=== PATIENT | male | born 1930 | race Caucasian/White ===

== ENCOUNTER 2017-04-28 07:31 | Day surgery (SDC) | payer OTHER ==
[2017-04-28] MEDS ORDERED: NS 500 ML IV ONE (07:34)
[2017-04-28] MEDS ORDERED: fentaNYL 100 MCG/2 ML INJ IVP ONE (07:34)
[2017-04-28] MEDS ORDERED: PROPOFOL 200 MG/20 ML VIAL IVP ONE (07:34)
[2017-04-28] MEDS ORDERED: MIDAZOLAM 2 MG/2 ML VIAL IVP ONE (07:34)
--- NOTE | 2017-04-28 07:52 | CPEKG ---
Heart Rate: 67 RR Interval: 896 P-R Interval: 174 QRSD Interval: 142 QT Interval: 460 QTC Interval: 486 P Bessie: 0 QRS Bessie: 100 T Wave Bessie: -74 EKG Severity - ABNORMAL ECG - EKG Impression: VENTRICULAR-PACED RHYTHM EKG Impression: IN COMPARISON TO PRIOR ECG, VENTRICULAR CAPTURE IS NOW NOTED Electronically Signed By: Ed Keith 28-Apr-2017 08:47:11
[2017-04-28 08:11] LABS: INR 3.6 (0.83-1.16); PROTIME(PATIENT) 36.5 SEC (12.0-15.0)
[2017-04-28 08:12] LABS: APTT 51.1 SEC (23.0-38.0)
--- NOTE | 2017-04-28 08:16 | PDANEPAE ---
ANE History of Present Illness 86 year old male w/ history of CAD (s/p CABG), AAA (s/p repair), hypothyroidism & atrial fibrillation presents for cardioversion. ANE Past Medical History - Cardiovascular History Hx Hypertension: Yes Hx Arrhythmias: Yes Hx Chest Pain: No Hx Coronary Artery / Peripheral Vascular Disease: Yes Hx CHF / Valvular Disease: No Hx Palpitations: No - Pulmonary History Hx COPD: No Hx Asthma/Reactive Airway Disease: No Hx Recent Upper Respiratory Infection: No Hx Oxygen in Use at Home: No Hx Sleep Apnea: No - Endocrine History Hx Diabetes: No Hypothyroid: Yes Hyperthyroid: No Obesity: no - Renal History Hx Renal Disorders: No - Liver History Hx Hepatic Disorders: No - Chronic Pain History Chronic Pain: Yes ANE Review of Systems - Exercise capacity Exercise capacity: <4 METS (Utilizes a walker; reports balance issues) ANE Patient History - Allergies Allergies/Adverse Reactions: No Known Allergies Allergy (Unverified 05/28/15 09:22) - Home Medications Home medications: home medication list seen and reviewed Home Medications: Aspirin [Aspirin 81mg (*)] 81 mg PO DAILY 05/28/15 [Last Taken 04/27/17 08:00] [place]-3 Fatty Acids [Fish Oil 1000 mg (*)] 1,000 mg PO BID 04/28/17 [Last Taken 04/27/17 17:00] Warfarin Sodium 3 mg PO DAILY 04/28/17 [Last Taken 04/27/17 17:00] - NPO status NPO Status: no food or drink >8 hours - Anes Hx Anes Hx: no prior problems - Smoking Hx Smoking Status: Never smoked - Alcohol Use Alcohol Use: Rarely - Family Anes Hx Family Anes Hx: neg - N/A ANE Labs/Vital Signs - Labs Result Diagrams: 04/28/17 07:52 - Vital Signs Vital Signs: reviewed preoperatively; see RN documention for details Height: 178 cm Weight: 90 kg ANE Physical Exam - Airway Neck exam: FROM Mallampati Score: Class 2 Mouth exam: poor dentition - Pulmonary Pulmonary: no respiratory distress - Cardiovascular Cardiovascular: regular rate and rhythym - ASA Status ASA Status: III ANE Anesthesia Plan Anesthesia Plan: GA with mask Total IV Anesthesia: Yes
[2017-04-28 08:39] LABS: CARBON DIOXIDE 22 mEq/l (22-31); CREATININE 1.3 mg/dL (0.7-1.3); GLOMERULAR FILTRATION RATE 52; GLUCOSE 92 mg/dL (70-100); POTASSIUM 4.4 mEq/L (3.5-5.2); SODIUM 141 mEq/L (134-144)
[2017-04-28 08:40] LABS: CALCIUM 9.1 mg/dL (8.5-10.4); MAGNESIUM 1.8 mg/dL (1.6-2.3)
[2017-04-28 08:49] LABS: ANION GAP 12 mEq/L (8-16); CHLORIDE 107 mEq/L (97-110)
--- NOTE | 2017-04-28 09:01 | PDTEE1 ---
SANCHEZ Cardioversion Procedure Procedure: Electrical Cardioversion Indications: Atrial Fibrillation Consent: Signed and in Chart Anticoagulation: Warfarin Procedural Details: Pads were placed in anterior-posterior position. No SANCHEZ performed. Adequate chronic anticoagulation. Synchronized cardioversion attempt #1: 200J Results: Normal sinus rhythm Conclusions: Successful Cardioversion Patient Problems: Problems Problem Status Onset Constipation Acute Fall Acute Fracture of hand Acute Shoulder pain, right Acute
--- NOTE | 2017-04-28 09:03 | CPEKG ---
Heart Rate: 62 RR Interval: 968 P-R Interval: 346 QRSD Interval: 132 QT Interval: 492 QTC Interval: 500 P [place]: 0 QRS [place]: 94 T Wave [place]: -77 EKG Severity - ABNORMAL ECG - EKG Impression: ATRIAL-VENTRICULAR DUAL-PACED COMPLEXES EKG Impression: ATRIAL PACING IS NOW APPRECIATED Electronically Signed By: Ed Keith 28-Apr-2017 09:03:13
--- NOTE | 2017-04-28 13:10 | POSTANESTH ---
Post Anesthetic Evaluation Cardiovascular Status: Normal, Stable Respiratory Status: Normal, Stable Level of Consciousness/Mental Status: Can Participate in Eval Pain Control: Adequate, Prn Tx Ordered Nausea/Vomiting Control: Adequate, Prn Tx Ordered Complications Possibly Related to Anesthesia: None Noted
== END 2017-04-28 11:15 | disposition home or self-care (01) ==
LOC: FCATH 07:31
PROVIDERS: ATTEND Internal Medicine Interventional Cardiology
PROC: 5A2204Z Restoration of Cardiac Rhythm, Single (ICD-10-PCS; principal; 2017-04-28)
DX: I48.91 Unspecified atrial fibrillation (principal); I49.5 Sick sinus syndrome; I25.10 Atherosclerotic heart disease of native coronary artery without angina pectoris; I73.9 Peripheral vascular disease, unspecified; I10 Essential (primary) hypertension; E78.00 Pure hypercholesterolemia, unspecified; E03.9 Hypothyroidism, unspecified; Z79.01 Long term (current) use of anticoagulants; Z95.1 Presence of aortocoronary bypass graft; Z95.0 Presence of cardiac pacemaker; Z66 Do not resuscitate
CPT/HCPCS: J2704

== ENCOUNTER 2017-06-02 02:26 | Inpatient (IN) | payer OTHER ==
--- NOTE | 2017-06-02 02:35 | EDPHY ---
H & P HPI/ROS: HPI CHIEF COMPLAINT: Syncope versus fall, multiple injuries on Coumadin HISTORY OF PRESENT ILLNESS: The patient very pleasant 86-year-old male, significant past medical history for hypertension, AFib, AAA repair, pacemaker, hyperlipidemia, on Coumadin, he presents emergency room by EMS from [facility] where he resides. He fell approximately 30 minutes prior to arrival. He states he thinks he lost his balance. Unknown if he had a positive LOC. He struck the left forehead region. Also has a large skin tear left elbow. Complaining left shoulder pain. Additionally is large hematoma to the right anterior tibia. He denies any significant complaints. He denies chest pain or shortness of breath. Denies abdominal pain. Past Medical History: Hypertension, hyperlipidemia, AFib on Coumadin, AAA, CABG , pacemaker Past Surgical History: Pacemaker, AAA repair, CABG Social History: Denies daily use of drugs alcohol tobacco products Family History:. Resides at [facility]. Noncontributory ROS REVIEW OF SYSTEMS: A comprehensive 10 point review of systems is otherwise negative aside from elements mentioned in the history of present illness. Exam Constitutional triage nursing summary reviewed, vital signs reviewed, awake/ alert. Eyes normal conjunctivae and sclera, EOMI, PERRLA. HENT head/neck: Left eyebrow hematoma 2 cm x 2 cm, normal inspection, atraumatic, moist mucus membranes, no epistaxis, neck supple/ no meningismus, no raccoon eyes. Respiratory clear to auscultation bilaterally, normal breath sounds, no respiratory distress, no wheezing. Cardiovascular rate normal, regular rhythm, no murmur, no edema, distal pulses normal. Gastrointestinal soft, non-tender, no rebound, no guarding, normal bowel sounds, no distension, no pulsatile mass. Genitourinary no CVA tenderness. Musculoskeletal left arm: Neurovascular intact. Good distal pulse. 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 Large skin tear left elbow region. Full range of motion left elbow, tender palpation of the proximal humerus and lateral shoulder. Does not want movement. No gross deformity. Additionally right lower extremity over the anterior tibia region. There is a hematoma present. 5 cm by 5 cm. Nontender. no midline vertebral tenderness, full range of motion , no calf swelling, no meningismus, good pulses, neurovascularly intact. Skin pink, warm, & dry, no rash, Neurologic awake, alert and oriented x 3, AAOx3, moves all 4 extremities equally, motor intact, sensory intact, CN II-XII intact, normal cerebellar, normal vision, normal speech. Psychiatric normal mood/affect. Heme/Lymph/Immune no lymphadenopathy. Differential Diagnosis: Includes but is not limited to in a particular order mechanical trip and fall, syncope, suprapubic INR, right tib-fib hematoma, left shoulder fracture, large skin tear, closed head injury, intracranial bleed, skull fracture, subdural, epidural, traumatic subarachnoid on Coumadin. Medical Decision Making: Plan for this patient IV establishment, check blood work, check Coumadin level, CT head without contrast for trauma, x-ray left shoulder, x-ray right tib-fib, check coags. Check blood work. EKG. Troponin. Re-evaluate. Re-evaluation: EKG interpretation by me on record in [employer] system. Impression time of EKG 2:52 a.m., ventricularly paced rhythm. Otherwise unremarkable EKG. Similar previous EKG dated 04/28/2017. Chest x-ray reviewed. Shows left humerus neck fracture. Otherwise unremarkable. Cardiomegaly. Left arm x-ray year humerus x-ray reviewed. Shows a humeral neck fracture. Right tib-fib x-ray reviewed. Negative for acute fracture. Left elbow x-ray reviewed by myself. No visible fracture. Final diagnosis, right leg shafer hematoma. Left elbow skin tear. Left humeral neck fracture. Fall. On Coumadin. Forehead hematoma. This patient be admitted to the hospitalist service for observation and pain control. He has a left humeral neck fracture. Right anterior tibial hematoma. Ice pack applied a pressure dressing. Tetanus shot has been updated here in the emergency room. This patient be admitted to the hospitalist service. Dr. Hanson has accepted. 0633AM: Patient has been sleeping and resting comfortably. He has been lying on his side. Was noted his blood pressure was low while lying on the side. He is now sitting up. On his back. Blood pressure noted to be 70s over 40s. Did receive fentanyl earlier. He has no complaints. He is asymptomatic. He denies chest pain or shortness of breath denies abdominal pain. He is getting IV fluid 1 L normal saline bolus. He has not had any fluid all night. Will re- evaluate his blood pressure shortly after fluid bolus. 0645: Blood pressures improved. 90/60. Source: Patient, EMS - Personal History Tetanus Vaccine Date: 2012 - Medical/Surgical History Hx Asthma: No Hx Chronic Respiratory Disease: No Hx Diabetes: No Hx Cardiac Disease: Yes Hx Renal Disease: No Hx Cirrhosis: No Hx Alcoholism: No Hx HIV/AIDS: No Hx Splenectomy or Spleen Trauma: No Other PMH: htn,afib,pacemeker,high chol,bypass, AAA repair, back surgery, carpal ; tunnel, cataract - Social History Smoking Status: Never smoked Constitutional: Initial Vital Signs Temperature (C) 36.5 C 06/02/17 02:39 Heart Rate 85 06/02/17 02:39 Respiratory Rate 18 06/02/17 02:39 Blood Pressure 148/83 H 06/02/17 02:39 O2 Sat (%) 94 06/02/17 02:39 O2 Delivery Mode Room Air Allergies/Adverse Reactions: No Known Allergies Allergy (Unverified 05/28/15 09:22) Home Medications: Medication Instructions Recorded Aspirin EC [Aspirin EC 81 mg (*)] 81 mg PO DAILY 06/02/17 Carvedilol [Coreg (*)] 6.25 mg PO BIDMEAL 06/02/17 Cholecalciferol Vit D3 [Vitamin D3 1,000 units PO DAILY 06/02/17 (*)] Finasteride [Proscar 5 MG (*)] 5 mg PO DAILY 06/02/17 Levothyroxine Sodium 125 mcg PO DAILY 06/02/17 SIMVASTATIN 10 mg PO DAILY@1800 06/02/17 Sertraline HCl [Zoloft 25mg (*)] 25 mg PO DAILY 06/02/17 Warfarin Sodium [Coumadin 1MG (*)] 1.5 mg PO MOFR@1700 06/02/17 Warfarin Sodium [Coumadin 1MG (*)] 3 mg PO SUTUWETHSA@1700 06/02/17 Medical Decision Making - Diagnostics Imaging Results: Imaging Impressions Chest X-Ray 06/02/17 02:28 Impression: 1. Clear lungs. No pneumothorax. 2. Acute minimally impacted left humeral surgical neck fracture. Elbow X-Ray 06/02/17 02:28 Impression: No evidence for acute osseous abnormality of left elbow. Shoulder X-Ray 06/02/17 02:28 Impression: 1. Acute minimally impacted proximal left humerus surgical neck fracture. 2. No dislocation or evidence of AC separation. Tibia/Fibula X-Ray 06/02/17 02:28 Impression: No evidence for acute osseous abnormality. Chronic findings as above. e:sfg - Data Points Laboratory Results: Laboratory Results 06/02/17 02:30 06/02/17 02:30 06/02/17 02:30 TSH 27.400 uIU/mL H uIU/mL (0.465-4.680) Medications Given: Acetaminophen (Tylenol) 1,000 mg PO TID RAFI Stop: 11/29/17 15:59 Last Admin: 06/02/17 16:07 Dose: 1,000 mg Hydrocodone Bitart/Acetaminophen ([place] 5/325) 1 - 2 tab PO Q4HRS PRN PRN Reason: Pain, Moderate Able to Take PO Stop: 06/12/17 08:57 Last Admin: 06/02/17 10:43 Dose: 2 tab Carvedilol (Coreg) 6.25 mg PO BIDMEAL [facility] Stop: 11/29/17 13:00 Last Admin: 06/02/17 18:00 Dose: Not Given Sodium Chloride (Ns) 1,000 mls @ 75 mls/hr IV CONT RAFI Stop: 11/29/17 08:59 Last Admin: 06/02/17 14:21 Dose: 1,000 mls Pravastatin Sodium (Pravachol) 20 mg PO DAILY@1800 RAFI Stop: 11/29/17 17:59 Last Admin: 06/02/17 18:03 Dose: 20 mg Sertraline HCl (Zoloft) 25 mg PO DAILY [facility] Stop: 11/29/17 13:14 Last Admin: 06/02/17 14:14 Dose: 25 mg Discontinued Medications Fentanyl (Sublimaze) 50 mcg IVP EDNOW ONE Stop: 06/02/17 03:54 Last Admin: 06/02/17 03:54 Dose: 50 mcg Fentanyl (Sublimaze) 50 mcg IVP EDNOW ONE Stop: 06/02/17 05:18 Last Admin: 06/02/17 05:18 Dose: 50 mcg Sodium Chloride (Ns) 1,000 mls @ 0 mls/hr IV ONCE ONE PRN Reason: Wide Open Stop: 06/02/17 06:22 Last Admin: 06/02/17 06:26 Dose: 1,000 mls Sodium Chloride (Ns) 250 mls @ 200 mls/hr IV ONCE ONE Stop: 06/02/17 15:53 Last Admin: 06/02/17 15:56 Dose: 250 mls Sodium Chloride (Ns) 250 mls @ 0 mls/hr IV ONCE ONE PRN Reason: Wide Open Stop: 06/02/17 18:18 Last Admin: 06/02/17 18:31 Dose: 250 mls Departure - Departure Disposition: [facility] Clinical Impression: Skin tear, Hematoma Humeral surgical neck fracture Qualifiers: Encounter type: initial encounter Fracture type: closed Fracture morphology: unspecified fracture morphology Fracture alignment: nondisplaced Laterality: left Qualified Code(s): S42.215A - Unspecified nondisplaced fracture of surgical neck of left humerus, initial encounter for closed fracture Syncope Qualifiers: Syncope type: unspecified Qualified Code(s): R55 - Syncope and collapse Condition: Fair
[2017-06-02 02:40] LABS: ABSOLUTE IMMATURE GRANULOCYTES 0.06 10^3/uL (0.00-0.10); ADD DIFF? NO; ADD MORPH? NO; ADD SCAN? NO; ATYPICAL LYMPHOCYTE FLAG 0 (0-99); FRAGMENT RBC FLAG 0 (0-99); HEMATOCRIT 41.1 % (40.0-51.0); HEMOGLOBIN 13.8 g/dL (13.7-17.5); LEFT SHIFT FLG 0 (0-99); LIPEMIA HEMOLYSIS FLAG 80 (0-99); MEAN CELL HEMOGLOBIN 33.3 pg (27.9-34.1); MEAN CELL HEMOGLOBIN CONCENTR. 33.6 g/dL (32.4-36.7); MEAN PLATELET VOLUME 10.5 fL (8.7-11.7); PLATELET CLUMPS FLAG 0 (0-99); PLATELET COUNT 181 10^3/uL (150-400); RED BLOOD CELL COUNT 4.15 10^6/uL (4.40-6.38); RED CELL DISTRIBUTION WIDTH 14.3 % (11.5-15.2)
[2017-06-02 02:49] LABS: INR 2.83 (0.83-1.16); PROTIME(PATIENT) 30.1 SEC (12.0-15.0)
[2017-06-02 02:50] LABS: APTT 36.2 SEC (23.0-38.0)
--- NOTE | 2017-06-02 02:54 | CPEKG ---
Heart Rate: 60 RR Interval: 1000 P-R Interval: 184 QRSD Interval: 146 QT Interval: 476 QTC Interval: 476 P [place]: 0 QRS [place]: 81 T Wave [place]: -40 EKG Severity - ABNORMAL ECG - EKG Impression: VENTRICULAR-PACED RHYTHM Electronically Signed By: Marck Cooper 02-Jun-2017 07:02:44
[2017-06-02 03:05] LABS: ANION GAP 11 mEq/L (8-16); CALCIUM 9.4 mg/dL (8.5-10.4); CARBON DIOXIDE 21 mEq/l (22-31); CHLORIDE 106 mEq/L (97-110); CREATININE 1.3 mg/dL (0.7-1.3); GLOMERULAR FILTRATION RATE 52; GLUCOSE 109 mg/dL (70-100); POTASSIUM 4.5 mEq/L (3.5-5.2); SODIUM 138 mEq/L (134-144)
[2017-06-02 03:17] LABS: TROPONIN I < 0.012 ng/mL (0.000-0.034)
[2017-06-02] MEDS ORDERED: fentaNYL 100 MCG/2 ML INJ ONE (03:51)
[2017-06-02] MEDS ORDERED: fentaNYL 100 MCG/2 ML INJ IVP ONE ×2 (03:53→05:17)
[2017-06-02] MEDS ORDERED: NS 1,000 ML IV ONE (06:21)
[2017-06-02 07:04] LABS: % IMMATURE GRANULYOCYTES 0.4 % (0.0-1.1); ABSOLUTE IMMATURE GRANULOCYTES 0.05 10^3/uL (0.00-0.10); ADD DIFF? NO; ADD MORPH? NO; ADD SCAN? NO; ATYPICAL LYMPHOCYTE FLAG 0 (0-99); FRAGMENT RBC FLAG 0 (0-99); HEMATOCRIT 37.3 % (40.0-51.0); HEMOGLOBIN 12.3 g/dL (13.7-17.5); LEFT SHIFT FLG 0 (0-99); LIPEMIA HEMOLYSIS FLAG 80 (0-99); MEAN CELL HEMOGLOBIN 32.6 pg (27.9-34.1); MEAN CELL VOLUME 98.9 fL (81.5-99.8); MEAN PLATELET VOLUME 10.5 fL (8.7-11.7); PLATELET CLUMPS FLAG 0 (0-99); PLATELET COUNT 152 10^3/uL (150-400); RED BLOOD CELL COUNT 3.77 10^6/uL (4.40-6.38); RED CELL DISTRIBUTION WIDTH 14.4 % (11.5-15.2)
[2017-06-02] MEDS ORDERED: ACETAMINOPHEN 325 MG TAB PO PRN (08:58)
[2017-06-02] MEDS ORDERED: ONDANSETRON 4 MG/2 ML VIAL IVP PRN (08:58)
[2017-06-02] MEDS ORDERED: HYDROmorphONE/DILAUDID 1 MG/ML INJ IVP PRN (08:58)
--- NOTE | 2017-06-02 10:36 | GHP ---
[f rep st] HISTORY AND PHYSICAL DATE OF ADMISSION: 06/02/2017 SOURCE: Patient able to provide majority of the history. Appears reliable. His son is at bedside a nd supplements details. CHIEF COMPLAINT: Fall. HISTORY OF PRESENT ILLNESS: This is a very pleasant 86-year-old gentleman with past medical history significant for coronary artery disease status post CABG, hyperlipidemia, hypothyroidism, BPH, depres keith, and history of atrial fibrillation on chronic anticoagulation with Coumadin, who presents to [facility] emergency department today following a syncopal episode at home early in the morning. Patient reports that he got up at approximately 2 o'clock to go to the bathroom and feels that he had a few seconds where he blacked out, but does recall the total event and falling and hitting the grou nd. Patient did strike the left side of his head and his arm and his left leg. 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 Patient does have a history of some hypotension last year that was resulti ng in multiple falls. Patient is followed closely with Cardiology and sees Dr. Kowalski. He states t hat approximately 2 weeks ago he had an appointment at the office where his pacer was interrogated an d found to be functioning normally. Patient denies any lightheadedness, no headache, no changes in v ision, no palpitations, no chest pain or shortness of breath. Patient states that he did feel a geni le bit lightheaded prior to his syncopal episode. Patient had a few blood pressures in the emergency department before arriving to the floor with systolics in the 70s to 80s. He did receive a liter of fluid in the emergency department and this has resolved. REVIEW OF SYSTEMS: GENERAL: Patient denies any fevers, chills. SKIN: Patient with some skin tears and bruising. He does have multiple calluses on his feet, which are followed by Podiatry. ENT: No congestion, sore throat. EYES: No acute changes in vision or ocular pain. CV: No chest pain, pal pitations. RESPIRATORY: No shortness of breath or cough. ABDOMEN: No nausea, vomiting, abdominal pain, or diarrhea. : No dysuria, hematuria. MUSCULOSKELETAL: Patient with left shoulder pain fo llowing his fall. Denies any numbness or tingling. Does use a walker for stability. NEURO: Patien t without numbness, tingling. No headache. No focal weakness reported. Remainder of review of syst ems negative except as noted above. ALLERGIES: No known drug allergies. HOME MEDICATIONS: Zoloft 50 mg p.o. daily, sertraline, warfarin, simvastatin, fish oil, levothyroxin e, finasteride, carvedilol, aspirin. Med rec not yet reconciled for dosing and frequency. PAST MEDICAL HISTORY: Significant for CABG, hyperlipidemia, hypothyroidism, BPH, depression, atrial fibrillation, and decreased hearing with the use of bilateral hearing aids. PAST SURGICAL HISTORY: Significant for AAA repair in 2004, pacer placement, CABG, carpal tunnel rele ase and multiple back surgeries. FAMILY HISTORY: Patient denies any coronary artery disease. Parents, siblings and children are all healthy. SOCIAL HISTORY: Patient resides at [facility] with his who has advanced johan ia. He denies any current tobacco or drug use. He does drink 1 beer per day. He quit smoking in just prior to his CABG. CODE STATUS: Patient with advanced directives. His son Kyle Wu is MD CLARKE. He is a DNR/DNI. PHYSICAL EXAMINATION: VITAL SIGNS: On arrival to the ER, blood pressure 148/83, heart rate 85, resp iratory rate 18, O2 saturation 94%, temperature 36.5 Celsius. Current vitals, blood pressure 121/68, heart rate 61, pulse ox 16, O2 saturation 99% on room air. GENERAL: No acute distress. Very pleas ant, elderly, frail-appearing gentleman who is resting comfortably in bed. Awake. His son is at bed side. Patient appears to be in good spirits. HEAD: Normocephalic. Patient with some trauma over t he left eyebrow. He has a contusion hematoma. EYES: Extraocular muscles are intact. Pupils are eq ual, round, reactive to light bilaterally and symmetric. No scleral icterus or conjunctival injectio n. There is a small subconjunctival hemorrhage on the right medial eye. ENT: Mucous membranes appe ar moist. No oropharyngeal erythema or exudates. NECK: Supple. Trachea midline. CV: Regular rat e and rhythm. Distant heart sounds. Patient with pacer implant on the left chest wall noted. No ch est wall tenderness to palpation. RESPIRATORY: Lungs clear to auscultation bilaterally. No wheezes , rales, or rhonchi appreciated. Some decreased inspiratory effort noted. ABDOMEN: Positive bowel sounds. Soft, nontender to palpation. No rebound, guarding, or masses appreciated. GENITOURINARY: No Wall in place. No suprapubic tenderness to palpation. EXTREMITIES: Patient without any cyanos is, clubbing, or edema. SKIN: Patient with bruising contusion left forehead. His left arm is in a sling and also wrapped heavily with Kerlix, reported to have a skin tear present. He also has abrasi on and large hematoma on the left mid lower leg. Patient's feet with some scabs at the distal aspect of his toes and multiple calluses with scabbed lesions present. NEURO: Cranial nerves II through X II intact, symmetric bilaterally. Patient is awake, alert, and oriented x3. He is slightly hard of hearing. PSYCH: Thought process, content and questions appear appropriate. LABORATORY STUDIES: WBC 5.94, DH and DH is 13.8 and 41.1, MCV of 99.0, platelet count is 181. No ba nds. A repeat CBC was obtained this morning. WBC is now 12.4, DH and DH 12.3 and 37.3, MCV of 98.9, platelet count 152, neutrophil percent 88%. PT is 30.1, INR 2.83, PTT is 36.2, sodium is 138, potas sium is 4.5, chloride 106, CO2 is 21, BUN 30, creatinine is 1.3. GFR is 52. Glucose is 109, calcium is 9.4. Troponin is less than 0.012. EKG reviewed myself showing AV paced rhythm in the 60s. Chest x-ray image report reviewed showing clear unremarkable chest x-ray with a left surgical neck fr acture in the proximal humerus, minimally impacted. Elbow image report reviewed. Left elbow without acute fracture. Shoulder image report reviewed. Acute, minimally impacted proximal left humerus surgical neck fractu re. No dislocation. No evidence of AC separation. Tib-fib x-ray on the left, negative for osseous abnormality. Vascular calcifications noted. Diffuse demineralization. Degenerative change of right knee. ASSESSMENT/PLAN: This is a pleasant 86-year-old gentleman who presents following a fall. 1. Syncope. Suspect this is likely related to some orthostatic hypotension for which patient does h ave a history of, but last episode has been well over a year. He is currently on carvedilol, which w ill be held at this time. In addition, will check a thyroid level. Patient reports that he recently saw a nurse practitioner at Dr. Kowalski's office with interrogation of his pacer that is reported to be functioning and intact. Will try to get a progress note to review those results. Patient will b e given some IV fluid hydration. His creatinine is slightly increased. Unclear if this is close to his baseline as his previous labs available from 2016 show a baseline of 1.1, so he will get some IV fluids. 2. Left humerus fracture at surgical neck. Dr. Blank with Orthopedics has been consulted for [facility] recommendations. 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 He is currently on Coum aneesh, which is slightly elevated. INR of 2.8. Will be holding his Coumadin and defer recommendation s to orthopedic service. 3. Leukocytosis. This is likely reactive in setting of patient's fall and/or combination with his b rief episode of hypotension, less likely. He will get some IV fluids. No evidence of fevers or infe ctious source. Will check a UTI given patient's bump in neutrophil. 4. Skin tears. Will consult Wound Care. 5. Atrial fibrillation. Patient currently V paced with therapeutic INR. Holding Coumadin. Hold of f on Coreg in addition secondary to hypotension and syncopal episode. 6. History of hypothyroidism. Checking TSH. 7. BPH. Okay to continue finasteride once list is updated. 8. Depression. Mood appears to be appropriate. Resume patient's home medication once his list is v erified. 9. Hyperlipidemia. Continue statin. 10. Fluid, electrolyte, nutrition. IV fluids as noted above for some gentle hydration. Electrolyte replacement p.r.n. Cardiac diet has been ordered. 11. Prophylaxis. SCDs as tolerated. Patient's INR is therapeutic at 2.8. 12. Code status is DNR/DNI. Patient's son, Kyle Wu, is MD CLARKE. 13. Disposition. Patient currently admitted to observation on the PCU floor for cardiac monitoring. /[id number]/MODL
[2017-06-02] MEDS: HYDROCODONE/APAP 5/325 TAB PO PRN ×2 (10:43→21:52)
[2017-06-02] MEDS: NS 1,000 ML IV SCH ×2 (10:44→14:21)
[2017-06-02] MEDS: SERTRALINE HCL 25 MG TAB PO SCH (14:14)
[2017-06-02] MEDS: CARVEDILOL 6.25 MG TAB PO SCH ×2 (14:37→18:00)
[2017-06-02] MEDS ORDERED: NS 250 ML IV ONE ×2 (14:39→18:17)
--- NOTE | 2017-06-02 14:51 | HOSPPROG ---
Hospitalist Progress Note Assessment/Plan: Patient is a 86-year-old male with a history of coronary artery disease status post coronary artery bypass grafting, hyperlipidemia, hypothyroidism, atrial fibrillation on chronic anticoagulation, who presented the emergency room after having a syncopal episode early in the morning. He was admitted earlier this morning. I came by to follow up with him. * syncope Patient has a history of orthostatic hypotension He is currently on Coreg this is his 3rd event/he describes just finding himself on the ground spoke w cards/they will see him evaluated tele: paced * hypotension Giving a fluid bolus now, parameters placed on Coreg, holding Proscar since 18% of the time it can cause hypotension * left humerus fracture at the surgical neck Awaiting input from surgical team * skin tears wound care * leukocytosis repeat labs in a.m. * atrial fibrillation Coreg will will be placed on hold and anticoagulation on hold until further evaluation * BPH holding Proscar for now * depression stable * hyperlipidemia statin resumed *Plan: will hold aspirin and Coumadin until further eval by orthopedics/ spoke w cardiology / he may need pacer interrogated Subjective: Bill has no complaints/ feeling well/ no arm pain. Objective: Vital Signs Temp Pulse Resp BP Pulse Ox 36.7 C 60 18 81/48 L 94 06/02/17 10:40 06/02/17 14:16 06/02/17 10:40 06/02/17 14:16 06/02/17 10:40 Laboratory Results 06/02/17 06:54 06/01/17 06/02/17 06/03/17 05:59 05:59 05:59 Output Total 250 Balance -250 PT 30.1 SEC (12.0-15.0) H 06/02/17 02:30 INR 2.83 (0.83-1.16) H 06/02/17 02:30 - Physical Exam Constitutional: no apparent distress, appears nourished Eyes: PERRL Ears, Nose, Mouth, Throat: hearing normal Cardiovascular: regular rate and rhythym Respiratory: no respiratory distress Gastrointestinal: normoactive bowel sounds Skin: warm, other (skin tear to right shafer) Neurologic: AAOx3 Psychiatric: interacting appropriately, not anxious ICD10 Worksheet Patient Problems: Problems Problem Status Onset Hematoma Acute Humeral surgical neck fracture Acute Skin tear Acute Syncope Acute Constipation Acute Fall Acute Fracture of hand Acute Shoulder pain, right Acute
[2017-06-02] MEDS: ACETAMINOPHEN 500 MG TAB PO SCH ×2 (16:07→21:52)
--- NOTE | 2017-06-02 16:32 | GCON ---
[f rep st] CONSULTATION HISTORY OF PRESENT ILLNESS: The patient was walking in the night and fell over. He did not lose con sciousness. He had no chest pain or chest tightness. He does recall very clearly falling down. Thi s has happened to him before. He landed on his left side and now has had trauma. He has been having this happen before. He sees a oxygen therapist for this and he is taken care of by Dr. Quigley. His c ardiac history includes bypass surgery, hyperlipidemia, atrial fibrillation, intermittent hypertensio n and peripheral vascular disease with abdominal aortic aneurysm repair in 2004. He does not have go ut. He does not have diabetes. He has no smoking history right now of any recent time in the past. He has no family history of premature coronary disease. He has been feeling his normal well self. He can get around, take care of things in his house. Does not have shortness of breath, orthopnea, P ND, dyspnea on exertion, pleuritic chest pain, fever, chills, cough, nausea, vomiting, diarrhea, cons tipation. He tells me he is really doing quite well. FAMILY HISTORY: No family history of premature coronary disease. No history of unexplained sudden at a young age. SOCIAL HISTORY: He is an active gentleman. He lives with his , who has significant medical prob lems. He does not smoke and he does not drink significant amounts of alcohol. He smoked up until ma ybe 38 years ago. REVIEW OF SYSTEMS: A 12-point review of systems negative except as covered here and in the chart. PAST SURGICAL HISTORY: 1. Back surgery. 2. Abdominal aortic aneurysm repair. 3. Pacemaker. 4. Bypass surgery. 5. An orthopedic procedure, carpal tunnel. REVIEW OF SYSTEMS: As I have said 13-point review of systems negative except as noted above. In add ition, he does have a remote history of carpal tunnel issues. He has a history of depression. Histo ry of hypothyroidism. He has decreased hearing. MEDICATIONS: Aspirin, carvedilol, simvastatin, warfarin, sertraline, fish oil, levothyroxine, finast eride. PHYSICAL EXAMINATION: VITAL SIGNS: Blood pressure is 137/70, heart rate 75, respiratory rate 12. H e is sitting comfortably in the hospital bed, flat and not short of breath. He is afebrile. NECK: Supple. CARDIOVASCULAR: S1, S2. Irregularly irregular. Soft systolic murmur left sternal b order. No diastolic murmur. No S3, S4. No rubs. PULMONARY: Rhonchi bilaterally. No rales, wheez ing, or dullness. CVA: No tenderness. ABDOMEN: Soft, nontender, without masses. EXTREMITIES: No edema, inflammation, or ulceration. He has his arm in a sling. He is traumatized from the fall as described in the chart. LABORATORY DATA: His EKG has a paced rhythm. His chest x-ray shows left surgical neck fracture in t he proximal humerus. He has other x-rays that are attached. Troponin is less than 0.012. His monit or does not show any pathologic ventricular arrhythmias that I can find. His platelet count, white c ount, hematocrit are all attached in the records. His blood sugar is 109. ASSESSMENT AND PLAN: Trauma. He clearly states today that he has not had syncope. He has been on r ate control for atrial fibrillation. He was given a Cardizem while back, got lightheaded on that. H is blood pressure at home can be 84 on a regular basis off medicine and so he stopped the Cardizem an d he is not having any problems with that right now. He has not had chest pain, nothing for an acute coronary syndrome, nothing for heart failure, nothing for significant malignant arrhythmias. At home and looking at this medications, his carvedilol may be a problem. I have talked to him extensively about the risk of surgery on his shoulder if that is what is needed. He understands there is a risk of . He does not want any further cardiovascular testing at th is time. He wants to have ongoing medical therapy and be watched carefully. He has no other issues or problems at this time. We are very happy to follow him with you if you need us to do anything. I do not think he needs to b e monitored at this point in time with further cardiovascular monitoring than is available in the [facility]. SUMMATION PROBLEM LIST: 1. Coronary artery disease/status post coronary artery bypass grafting. 2. Hyperlipidemia. 3. Hypothyroidism. 4. Atrial fibrillation. 5. Decreased hearing. 6. Abdominal aortic aneurysm repair. All his questions have been answered. We will not plan on seeing him again unless something comes up ; if that is the case, please give us a call. I have talked to his nurse about this. /[id number]/MODL
[2017-06-02] MEDS ORDERED: NON-FORMULARY NEW DRUG (Simvastatin [Simvastatin] 10 MG) PO SCH (18:00)
[2017-06-02] MEDS: PRAVASTATIN SODIUM 20 MG TAB PO SCH (18:03)
--- NOTE | 2017-06-02 20:33 | GCON ---
[f rep st] CONSULTATION REASON FOR CONSULTATION: Left shoulder injury. HISTORY OF PRESENT ILLNESS: The patient is an 86-year-old, right-hand dominant man, who sustained a fall due to imbalance, landing on his left arm. He now has left shoulder pain. He denies any previo us problems or injuries relative to his left shoulder. EXAMINATION: There is mild diffuse swelling with no ecchymosis, and no gross deformity about his lef t shoulder girdle. Vascular exam reveals good capillary refill distally. He is able to flex and ext end his fingers and wrist without difficulty with normal distal sensation. He has mild tenderness al twila the proximal humerus, reproducing the location of his pain. IMAGING: Radiographs of his shoulder show very minimally displaced surgical neck humerus fracture wi th some extension into the head. There is very minimal displacement. ASSESSMENT: Left proximal humerus fracture. PLAN: Based on the minimally displaced nature of the fracture, it is recommended that nonoperative t reatment course be pursued. He was placed in a sling. From an ambulation standpoint, a rolling fore arm walker may be of benefit. He and his son were informed of the extreme likelihood that this will heal uneventfully with nonoperative treatment, but subtle risk that displacement may occur necessitat ing surgery. Followup will be in approximately 3 weeks for repeat radiographs. /[id number]/MODL
[2017-06-02 21:43] LABS: COLOR YELLOW; LEUKOCYTE ESTERASE,URINE 2+ (NEGATIVE); NITRITE,URINE NEGATIVE (NEGATIVE)
[2017-06-02 21:52] LABS: BACTERIA 4+ /hpf (NONE SEEN); RBC,URINE 50-182 /hpf (0-3); WBC,URINE 50-182 /hpf (0-3)
[2017-06-03 05:13] LABS: % IMMATURE GRANULYOCYTES 0.4 % (0.0-1.1); ABSOLUTE IMMATURE GRANULOCYTES 0.04 10^3/uL (0.00-0.10); ADD DIFF? NO; ADD MORPH? NO; ADD SCAN? NO; ATYPICAL LYMPHOCYTE FLAG 0 (0-99); FRAGMENT RBC FLAG 0 (0-99); HEMATOCRIT 32.3 % (40.0-51.0); HEMOGLOBIN 10.6 g/dL (13.7-17.5); LEFT SHIFT FLG 20 (0-99); LIPEMIA HEMOLYSIS FLAG 80 (0-99); MEAN CELL HEMOGLOBIN 32.8 pg (27.9-34.1); MEAN CELL HEMOGLOBIN CONCENTR. 32.8 g/dL (32.4-36.7); PLATELET CLUMPS FLAG 0 (0-99); PLATELET COUNT 135 10^3/uL (150-400); RED BLOOD CELL COUNT 3.23 10^6/uL (4.40-6.38); RED CELL DISTRIBUTION WIDTH 14.6 % (11.5-15.2)
[2017-06-03 05:31] LABS: ANION GAP 11 mEq/L (8-16); CALCIUM 8.2 mg/dL (8.5-10.4); CARBON DIOXIDE 20 mEq/l (22-31); CHLORIDE 107 mEq/L (97-110); CREATININE 1.6 mg/dL (0.7-1.3); GLOMERULAR FILTRATION RATE 41; GLUCOSE 105 mg/dL (70-100); POTASSIUM 4.3 mEq/L (3.5-5.2); SODIUM 138 mEq/L (134-144)
[2017-06-03 05:32] LABS: INR 3.34 (0.83-1.16); PROTIME(PATIENT) 34.4 SEC (12.0-15.0)
[2017-06-03] MEDS: ACETAMINOPHEN 500 MG TAB PO SCH ×3 (06:20→20:54)
[2017-06-03] MEDS ORDERED: FINASTERIDE 5 MG TAB PO SCH (09:00)
[2017-06-03] MEDS: LEVOTHYROXINE 125 MCG TAB PO SCH (09:58)
[2017-06-03] MEDS: CHOLECALCIFEROL VIT D3 1,000 UNITS TAB PO SCH (09:58)
[2017-06-03] MEDS: SERTRALINE HCL 25 MG TAB PO SCH (10:00)
[2017-06-03] MEDS: CARVEDILOL 6.25 MG TAB PO SCH (10:00)
--- NOTE | 2017-06-03 12:07 | HOSPPROG ---
Hospitalist Progress Note Assessment/Plan: Patient is a 86-year-old male with a history of coronary artery disease status post coronary artery bypass grafting, hyperlipidemia, hypothyroidism, atrial fibrillation on chronic anticoagulation, who presented the emergency room after having a syncopal episode early in the morning. He was admitted earlier this morning. I came by to follow up with him. Reviewed his care with Dr Morel with cardiology/ appreciate him seeing Tyrone. * syncope Patient has a history of orthostatic hypotension He is currently on Coreg/on hold due to hypotension this is his 3rd event/he describes just finding himself on the ground evaluated tele: v paced * hypotension Giving 2nd fluid bolus not symptomatic x may be causing his falls *Hypothyroidism TSH is elevated at 27.4 likely need Synthroid dose increased * left humerus fracture at the surgical neck appreciate Dr Blank/ nonsurgical * skin tears wound care * leukocytosis resolved *anemia will follow/ has some macrocytosis *Pyuria and hematuria not symptomatic/says he has had years of blood in his urine * atrial fibrillation Coreg not given due to low bp Coumadin on hold/ INR is 3.3 * BPH holding Proscar for now (decreases bp) * depression stable * hyperlipidemia statin resumed *Plan: he will need to stay another midnight due to hypotension, falling, elevated kidney function;this will make him IP stay Subjective: Tyrone has no c/o pain as long as he doesn't move his left arm. Objective: Vital Signs Temp Pulse Resp BP Pulse Ox 36.8 C 63 14 90/51 L 97 06/03/17 08:00 06/03/17 08:00 06/03/17 08:00 06/03/17 08:00 06/03/17 08:00 Laboratory Results 06/03/17 04:20 06/03/17 04:20 06/02/17 06/03/17 06/04/17 05:59 05:59 05:59 Intake Total 2175 Output Total 930 Balance 1245 PT 34.4 SEC (12.0-15.0) H 06/03/17 04:20 INR 3.34 (0.83-1.16) H 06/03/17 04:20 - Physical Exam Constitutional: appears nourished, not in pain, chronically ill appearing Eyes: PERRL Ears, Nose, Mouth, Throat: hard of hearing Cardiovascular: regular rate and rhythym Respiratory: no respiratory distress Gastrointestinal: normoactive bowel sounds, other (large and round) Skin: warm, other (skin tear to shafer area) Neurologic: AAOx3 Psychiatric: interacting appropriately, not anxious, not encephalopathic ICD10 Worksheet Patient Problems: Problems Problem Status Onset Hematoma Acute Humeral surgical neck fracture Acute Skin tear Acute Syncope Acute Constipation Acute Fall Acute Fracture of hand Acute Shoulder pain, right Acute
[2017-06-03] MEDS ORDERED: ASPIRIN EC 81 MG TAB PO SCH (12:15)
--- NOTE | 2017-06-03 12:26 | ASMTCMCOM ---
CM Note CM Note Notes: 06/03/2017 Case Management Note Met w/pt and son Kyle who is MDPOA. Pt lives at [facility] near [address] [facility]. is wheelchair bound and receives therapy from both [facility] and [facility]. If pt needs home health care, first choice is to increase services through [facility]. Pt is able to drive, receives housekeeping services and meals through [facility]. Son is actively involved in cares. Kyle reports that [facility] is able to add additional services as needed and that [facility] is able to care for residents who are bed bound and require high levels of care. PT recommends SNF rehab. Discussed w/pt and son. Sent referrals to [facility] at pt request. Both are in network for [employer] per son who researched on [employer] website. Case Management d/c poc: SNF when accepted. Case Management to follow. Date Signed: 06/03/2017 12:26 PM Electronically Signed By:Juju Alvarez RN
[2017-06-03] MEDS ORDERED: NS 250 ML IV ONE (12:32)
[2017-06-03] MEDS ORDERED: HYDROCODONE/APAP 5/325 TAB PO PRN (12:43)
--- NOTE | 2017-06-03 12:59 | PDCARPN ---
Cardiology Progress Note Chief Complaint: synocpe Assessment/Plan: Assessment: 1. Non prodromal Syncope 2. Atrial Fibrillation (rate controlled) 3. Hypotension 4. Hx of CAD with CABG in and 1993 5. SSS sp PPM ( Medtronic pacer) Plan: -stop coreg -if need rate controll, will use digoxin but would not empirically start digoxin now -would also consider AV node ablation if rate control becomes an issue off of Beta lorenza -stop aspirin in the setting of warfarin therapy -Will follow 06/03/17 12:59 Subjective: 86 year old admitted after syncopal episode on Monday night. He states he got up to go to the bathroom at 2 AM, he states he stood up out of bed and the next thing he knew he was on the floor bleeding from his elbow. He suffered hematoma to his left side of his face and humerous fracture and hematoma to his left leg. He reports two other, similar non prodromal syncopal events over the last 2 years. Mr. Wu is followed by Dr. Preston Quigley. He has hx of CABG in 1982 and 1993. He also has hx of SSS, sp pacemaker and PAF. He is on chronic anticoagulation with warfarin. He is on coreg 6.25 mg bid. His only complaint is fatigue. He denies dizziness, lightheadedness, or syncope. No chest pain, sob, laura. No new changes in his medications. He is currently in rate controlled afib with intermittant paced beats. He is hypotensive with SBP in the 90's. He is resting comfortably in a chair at the time of my exam. Reviewed/Discussed With: hospitalist, multidisciplinary team Time Spent With Patient: 30 minutes Objective: Vital Signs (8 Hrs) Temp Pulse Resp BP Pulse Ox 06/03/17 08:00 36.8 C 63 14 90/51 L 97 Intake/Output (24 Hrs) 06/02/17 06/03/17 06/04/17 05:59 05:59 05:59 Intake Total 2175 Output Total 930 50 Balance 1245 -50 Intake: Oral (ml) 850 IV Infused (ml) 1325 Ns 1,000 ml @ 75 mls/hr 825 IV CONT RAFI Rx#: [id number] Ns 250 ml @ 200 mls/hr IV 250 ONCE ONE Rx#:[id number] Ns 250 ml @ Wide Open IV 250 ONCE ONE Rx#:[id number] Output: Urine (ml) 930 50 Urinal 930 50 Other: Weight 85.275 kg Intake Quantity Yes Sufficient Number of Voids Urinal 1 Result Diagrams: 06/03/17 04:20 06/03/17 04:20 - Physical Exam Constitutional: WDWN, no apparent distress Cardiovascular: no murmurs, no rubs, no gallops, irregularly irregular Peripheral Pulses: 2+: carotid (R), carotid (L) Respiratory: clear to auscultate bilat Gastrointestinal: normoactive bowel sounds Skin: other (Left sided facial hematoma, right shafer hematoma ) Neurologic: AAOx3, CN II-XII grossly intact Psychiatric: cooperative, interactive, following commands ICD10 Worksheet Patient Problems: Problems Problem Status Onset Fall Acute Fracture of hand Acute Shoulder pain, right Acute Constipation Acute Humeral surgical neck fracture Acute Skin tear Acute Syncope Acute Hematoma Acute
[2017-06-03] MEDS: PRAVASTATIN SODIUM 20 MG TAB PO SCH (16:31)
[2017-06-04 04:41] LABS: % IMMATURE GRANULYOCYTES 0.5 % (0.0-1.1); ABSOLUTE IMMATURE GRANULOCYTES 0.04 10^3/uL (0.00-0.10); ADD DIFF? NO; ADD MORPH? NO; ADD SCAN? NO; ATYPICAL LYMPHOCYTE FLAG 0 (0-99); FRAGMENT RBC FLAG 0 (0-99); HEMATOCRIT 30.4 % (40.0-51.0); HEMOGLOBIN 9.9 g/dL (13.7-17.5); LEFT SHIFT FLG 10 (0-99); LIPEMIA HEMOLYSIS FLAG 80 (0-99); MEAN CELL HEMOGLOBIN 32.6 pg (27.9-34.1); MEAN CELL HEMOGLOBIN CONCENTR. 32.6 g/dL (32.4-36.7); PLATELET CLUMPS FLAG 0 (0-99); PLATELET COUNT 124 10^3/uL (150-400); RED BLOOD CELL COUNT 3.04 10^6/uL (4.40-6.38); RED CELL DISTRIBUTION WIDTH 14.6 % (11.5-15.2)
[2017-06-04 04:50] LABS: INR 2.79 (0.83-1.16); PROTIME(PATIENT) 29.8 SEC (12.0-15.0)
[2017-06-04 04:51] LABS: ANION GAP 7 mEq/L (8-16); CALCIUM 8.3 mg/dL (8.5-10.4); CARBON DIOXIDE 20 mEq/l (22-31); CHLORIDE 107 mEq/L (97-110); CREATININE 1.4 mg/dL (0.7-1.3); GLOMERULAR FILTRATION RATE 48; GLUCOSE 87 mg/dL (70-100); SODIUM 134 mEq/L (134-144)
--- NOTE | 2017-06-04 08:15 | PDCARPN ---
Cardiology Progress Note Assessment/Plan: Assessment: 1. Non prodromal Syncope 2. Atrial Fibrillation (rate controlled) 3. Hypotension 4. Hx of CAD with CABG in and 1993 5. SSS sp PPM ( Medtronic pacer) Plan: -would recommend he remain off of beta blockers in the setting of hypotension and syncope -if need rate control, recommend digoxin but would not empirically start digoxin now -would also consider AV node ablation if rate control becomes challenging -stop aspirin in the setting of warfarin therapy -Will follow 06/03/17 12:59 06/04/17 08:12 Subjective: Mr. Wu is doing well this AM. No new complaints. BP has slightly improved. Remains in rate controlled Afib with intermittant paced beats. No complaints of dizzness, lightheadedness, near syncope or syncope. Pt reports pacer checked last week. Time Spent With Patient: 15 minutes Objective: Vital Signs (8 Hrs) Temp Pulse Resp BP Pulse Ox 06/04/17 04:00 36.6 C 64 16 102/61 96 Intake/Output (24 Hrs) 06/03/17 06/04/17 06/05/17 05:59 05:59 05:59 Intake Total 600 Output Total 650 Balance -50 Intake: Oral (ml) 350 IV Infused (ml) 250 Ns 250 ml @ Wide Open IV 250 ONCE ONE Rx#:[id number] Output: Urine (ml) 650 Urinal 650 Other: Intake Quantity Yes Sufficient Result Diagrams: 06/04/17 04:03 06/04/17 04:03 - Physical Exam Constitutional: WDWN Cardiovascular: irregularly irregular Respiratory: clear to auscultate bilat Neurologic: AAOx3 Psychiatric: cooperative, interactive, following commands ICD10 Worksheet Patient Problems: Problems Problem Status Onset Hematoma Acute Humeral surgical neck fracture Acute Skin tear Acute Syncope Acute Constipation Acute Fall Acute Fracture of hand Acute Shoulder pain, right Acute
[2017-06-04] MEDS: LEVOTHYROXINE 125 MCG TAB PO SCH (09:24)
[2017-06-04] MEDS: SERTRALINE HCL 25 MG TAB PO SCH (09:25)
[2017-06-04] MEDS: CHOLECALCIFEROL VIT D3 1,000 UNITS TAB PO SCH (09:25)
[2017-06-04] MEDS: ACETAMINOPHEN 500 MG TAB PO SCH ×3 (09:25→20:34)
--- NOTE | 2017-06-04 11:27 | HOSPPROG ---
Hospitalist Progress Note Assessment/Plan: Patient is a 86-year-old male with a history of coronary artery disease status post coronary artery bypass grafting, hyperlipidemia, hypothyroidism, atrial fibrillation on chronic anticoagulation, who presented the emergency room after having a syncopal episode early in the morning. Reviewed his care with Dr Morel, appreciate his involvement with Tyrone's care. Aspirin & coreg dc per cards * syncope Patient has a history of orthostatic hypotension Coreg dc/ suspect hypotension was likely the etiology *renal insufficiency due to hypoperfusion from low bp improving *gait instability therapies are recommending SNF * hypotension much improved w fluid bolus better w stopping Coreg *Hypothyroidism TSH is elevated at 27.4/recheck in 6 weeks if remains elevated, will need Synthroid dose increased * left humerus fracture at the surgical neck appreciate Dr Blank/ nonsurgical had some bleeding in bandages per nursing staff, but has stopped * skin tears wound care * leukocytosis resolved *anemia will follow/ has some macrocytosis *Pyuria and hematuria not symptomatic/says he has had years of blood in his urine * atrial fibrillation rate controlled without coreg Coumadin on hold/ INR is 2.79/ will recheck in a.m. and likely resume tomorrow * BPH holding Proscar for now (decreases bp) Voiding without difficulty * depression stable * hyperlipidemia statin resumed *Plan: will change his diet to regular diet/ not eating much while on cardiac diet, repeat INR in a.m. Ordered IP rehab to see if possible/ Tyrone would very much like to do this, if this doesn't go through, he will go either to [facility] or [facility] for rehab. Subjective: Tyrone is feeling well/ has no complaints. Objective: Vital Signs Temp Pulse Resp BP Pulse Ox 36.9 C 74 14 117/69 98 06/04/17 09:05 06/04/17 09:05 06/04/17 09:05 06/04/17 09:05 06/04/17 09:05 Laboratory Results 06/04/17 04:03 06/04/17 04:03 06/03/17 06/04/17 06/05/17 05:59 05:59 05:59 Intake Total 600 Output Total 650 200 Balance -50 -200 PT 29.8 SEC (12.0-15.0) H 06/04/17 04:03 INR 2.79 (0.83-1.16) H 06/04/17 04:03 - Physical Exam Constitutional: no apparent distress, appears nourished, not in pain Eyes: PERRL Ears, Nose, Mouth, Throat: hearing normal Cardiovascular: irregularly irregular, No tachycardia Respiratory: no respiratory distress Gastrointestinal: normoactive bowel sounds Skin: warm Musculoskeletal: generalized weakness Neurologic: AAOx3 Psychiatric: interacting appropriately, not anxious ICD10 Worksheet Patient Problems: Problems Problem Status Onset Hematoma Acute Humeral surgical neck fracture Acute Skin tear Acute Syncope Acute Constipation Acute Fall Acute Fracture of hand Acute Shoulder pain, right Acute
[2017-06-04] MEDS: PRAVASTATIN SODIUM 20 MG TAB PO SCH (18:15)
[2017-06-05] MEDS ORDERED: IPRATROPIUM/ALBUTEROL 3 ML DEYVIAL IH PRN (02:48)
[2017-06-05 04:51] LABS: INR 2.32 (0.83-1.16); PROTIME(PATIENT) 25.7 SEC (12.0-15.0)
[2017-06-05 05:06] LABS: ANION GAP 12 mEq/L (8-16); CALCIUM 8.2 mg/dL (8.5-10.4); CARBON DIOXIDE 18 mEq/l (22-31); CHLORIDE 107 mEq/L (97-110); CREATININE 1.1 mg/dL (0.7-1.3); GLOMERULAR FILTRATION RATE > 60; GLUCOSE 99 mg/dL (70-100); POTASSIUM 3.9 mEq/L (3.5-5.2); SODIUM 137 mEq/L (134-144)
[2017-06-05] MEDS: ACETAMINOPHEN 500 MG TAB PO SCH ×3 (09:25→21:04)
[2017-06-05] MEDS: SERTRALINE HCL 25 MG TAB PO SCH (09:27)
[2017-06-05] MEDS: CHOLECALCIFEROL VIT D3 1,000 UNITS TAB PO SCH (09:27)
[2017-06-05] MEDS: LEVOTHYROXINE 125 MCG TAB PO SCH (09:27)
--- NOTE | 2017-06-05 10:01 | PDCARPN ---
Cardiology Progress Note Chief Complaint: syncope Assessment/Plan: Assessment: 86M PMH CAD with 3V CABG in 1981 then 4V CABG 1992, SSS s/p PPM in 2013, htn, permanent AF on Warfarin, previous AF ablation, AAA s/p aortoiliac grafting 2009 , moderate carotid disease based on neck CTA 2014, here after syncopal episode. Awoke in the night and may have been hurrying more. Noted antecedent lightheadedness. Also has known h/o orthostatic hypotension. #. syncope: likely orthostatic Coreg and Finasteride on hold check orthostatics previous neck CTA showed nonobstructive vertebral stenosis/ will recheck carotid dopplers check pacer to r/o VT or other malignant arrhythmia #. permanent AF: attempted DCC in 04/27 but reverted to AF pt managed with anticoagulation with Coumadin now off Coreg/ will follow rates but so far looks OK #. hypoxia: typically does not have need for supplemental O2 last echo from our office 04/27 shows EF 68%, mild MR/TR and mild-mod Ao sclerosis likely volume overload in setting of IVF for hypotension CXR confirms fluid overload will give one time dose of Lasix #. shaking chills: pt describes episode last night/ will check with hospitalist regarding possible infectious etiology #. htn: BP appears controlled #. PVD: on statin #. CAD: on med mgmt/ given advanced age, we have not done any recent stress testing Plan: 06/05/17 09:50 Subjective: Not feeling LH or dizzy but reports not being ambulatory. Elbow/arm only hurts on movement. No dyspnea, palps, pnd/orthopnea. Reports episode of awaking at 2 AM to go to bathroom and having onset of shaking chills. He reports several warm blankets were placed. Symptoms lasted about an hour. Reviewed/Discussed With: hospitalist Objective: Vital Signs (8 Hrs) Temp Pulse Resp BP Pulse Ox 06/05/17 08:00 98.3 F 80 20 106/63 98 06/05/17 04:00 98.2 F 71 16 95/54 L 96 06/05/17 02:30 82 22 H 137/73 H 95 06/05/17 02:15 98 F 86 26 H 181/89 H 72 L Intake/Output (24 Hrs) 06/04/17 06/05/17 06/06/17 05:59 05:59 05:59 Intake Total 600 780 Output Total 650 1620 Balance -50 -840 Intake: Oral (ml) 350 780 IV Infused (ml) 250 Ns 250 ml @ Wide Open IV 250 ONCE ONE Rx#:[id number] Output: Urine (ml) 650 1620 Toilet 100 Urinal 650 1520 Other: Intake Quantity Yes Sufficient Number of Voids Incontinence 1 Toilet 1 Urinal 2 Post Void Residual Scan Volume (ml) Incontinence 19 Result Diagrams: 06/04/17 04:03 06/05/17 03:56 Cardiac Labs: Tn 06/02 <0.012 EKG: V-paced Telemetry: AF occasional V pacing - Physical Exam Constitutional: no apparent distress Eyes: PERRL Ears, Nose, Mouth, Throat: moist mucous membranes Cardiovascular: no gallops, irregularly irregular Respiratory: other (diminished breath sounds at bases) Gastrointestinal: normoactive bowel sounds, no tenderness Skin: no rashes, warm Neurologic: AAOx3 Psychiatric: cooperative, interactive ICD10 Worksheet Patient Problems: Problems Problem Status Onset Fall Acute Fracture of hand Acute Shoulder pain, right Acute Constipation Acute Humeral surgical neck fracture Acute Skin tear Acute Syncope Acute Hematoma Acute
--- NOTE | 2017-06-05 12:26 | HOSPPROG ---
Hospitalist Progress Note Assessment/Plan: Patient is a 86-year-old male with a history of coronary artery disease status post coronary artery bypass grafting, hyperlipidemia, hypothyroidism, atrial fibrillation on chronic anticoagulation, who presented the emergency room after having a syncopal episode early in the morning. Reviewed his care Janie Becker. * syncope Patient has a history of orthostatic hypotension Coreg dc/ suspect hypotension was likely the etiology carotid ultrasound shows moderate stenosis pacer to get checked to r/o any arrhythmias *hypoxia this occurred during the night suspect it is from being fluid overloaded give one dose of Lasix if bp tolerates *renal insufficiency due to hypoperfusion from low bp improving *gait instability therapies are recommending SNF * hypotension much improved w fluid bolus better w stopping Coreg *Hypothyroidism TSH is elevated at 27.4/recheck in 6 weeks increased Synthroid dose from 125 mcg to 137mcg will check T3 and T4 * left humerus fracture at the surgical neck appreciate Dr Blank/ nonsurgical had some bleeding in bandages per nursing staff, will hold Coumadin one more day * skin tears wound care * leukocytosis resolved *anemia will follow/ has some macrocytosis *Pyuria and hematuria not symptomatic/says he has had years of blood in his urine * atrial fibrillation/persistent rate controlled without coreg Coumadin on hold/ INR is 2.3/ will recheck in a.m. 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 Subjective: Tyrone is feeling overall well today/ no complaints. Objective: Vital Signs Temp Pulse Resp BP Pulse Ox 36.5 C 77 14 136/72 H 92 06/05/17 11:45 06/05/17 12:16 06/05/17 11:45 06/05/17 12:16 06/05/17 11:45 Laboratory Results 06/04/17 04:03 06/05/17 03:56 06/04/17 06/05/17 06/06/17 05:59 05:59 05:59 Intake Total 600 780 Output Total 650 1620 275 Balance -50 -840 -275 PT 25.7 SEC (12.0-15.0) H 09/25/17 03:56 INR 2.32 (0.83-1.16) H 06/05/17 03:56 - Physical Exam Constitutional: no apparent distress, appears nourished, not in pain, chronically ill appearing Eyes: PERRL Ears, Nose, Mouth, Throat: hearing normal Cardiovascular: irregularly irregular Respiratory: no respiratory distress Gastrointestinal: normoactive bowel sounds Skin: other (serous bloody drainage at left elbow dressings) Musculoskeletal: generalized weakness Neurologic: AAOx3 Psychiatric: interacting appropriately ICD10 Worksheet Patient Problems: Problems Problem Status Onset Hematoma Acute Humeral surgical neck fracture Acute Skin tear Acute Syncope Acute Constipation Acute Fall Acute Fracture of hand Acute Shoulder pain, right Acute
[2017-06-05] MEDS ORDERED: LEVOTHYROXINE 125 MCG TAB PO SCH (12:29)
[2017-06-05] MEDS ORDERED: FUROSEMIDE 20 MG/2 ML VIAL IVP ONE (12:31)
--- NOTE | 2017-06-05 16:28 | WOCRNPDOC ---
WOCRN Advanced Assessment Note - Skin Integrity Problem, Advanced Assess Bilateral Buttock Dressing Type: Fligoo Life Integumentary Issue Intervention: Visualized Under Dressing Brigitte Wound Tissue: Blanching, Erythema Skin Integrity Problem Comment: No pressure injury present and area has minimal erythema. Continue offloading for prevention. Wound care will not follow.
--- NOTE | 2017-06-05 16:43 | ASMTCMCOM ---
CM Note CM Note Notes: 06/05/2017 Case Management Note: Met w/patient and son. Son plans to tour [facility] and [facility] tomorrow and chose facility. Tim from [facility] met w/patient. Spoke w/Hillary on the phone from [facility]. Pt indicates d/c will happen on Monday. Case Management to follow. 06/03/2017 Case Management Note Met w/pt and son Kyle who is MDPOA. Pt lives at [facility] near [place] and [facility]. is wheelchair bound and receives therapy from both [facility] and [facility]. If pt needs home health care, first choice is to increase services through [facility]. Pt is able to drive, receives housekeeping services and meals through [facility]. Son is actively involved in cares. Kyle reports that [facility] is able to add additional services as needed and that [facility] is able to care for residents who are bed bound and require high levels of care. PT recommends SNF rehab. Discussed w/pt and son. Sent referrals to [facility] and [facility] at pt request. Both are in network for [employer] per son who researched on [employer] website. Case Management d/c poc: SNF when accepted. Case Management to follow. Date Signed: 06/05/2017 04:43 PM Electronically Signed By:Juju Alvarez RN
[2017-06-05] MEDS ORDERED: WARFARIN SODIUM 1 MG TAB PO SCH (17:00)
[2017-06-05] MEDS: PRAVASTATIN SODIUM 20 MG TAB PO SCH (18:34)
[2017-06-06 04:33] LABS: INR 2.13 (0.83-1.16)
[2017-06-06 05:09] LABS: T3 (TRIIODOTHYRONINE) TOTAL 0.474 ng/mL (0.970-1.690)
[2017-06-06] MEDS ORDERED: LEVOTHYROXINE 137 MCG TAB PO SCH (06:00)
[2017-06-06] MEDS: CHOLECALCIFEROL VIT D3 1,000 UNITS TAB PO SCH (09:17)
[2017-06-06] MEDS: ACETAMINOPHEN 500 MG TAB PO SCH (09:17)
[2017-06-06] MEDS: SERTRALINE HCL 25 MG TAB PO SCH (09:17)
--- NOTE | 2017-06-06 09:29 | PDCARPN ---
Cardiology Progress Note Chief Complaint: syncope Assessment/Plan: Assessment: 86M PMH CAD with 3V CABG in 1981 then 4V CABG 1992, SSS s/p PPM in 2013, htn, permanent AF on Warfarin, previous AF ablation, AAA s/p aortoiliac grafting 2009 , moderate carotid disease based on neck CTA 2014, here after syncopal episode. Awoke in the night of 06/02 and may have been hurrying more. Noted antecedent lightheadedness. Also has known h/o orthostatic hypotension. #. syncope: likely orthostatic Coreg and Finasteride on hold orthostatics from yesterday look wnl previous neck CTA showed nonobstructive vertebral stenosis/ carotids with mild-mod disease and antegrade flow in vertebral arteries pacer check from yesterday shows no malignant arrhythmia #. permanent AF: attempted DCCV in 04/27 but reverted to AF pt managed with anticoagulation with Coumadin now off Coreg/ will follow rates but so far looks OK #. hypoxia: typically does not have need for supplemental O2 last echo from our office 04/27 shows EF 68%, mild MR/TR and mild-mod Ao sclerosis likely volume overload in setting of IVF for hypotension CXR confirms fluid overload one time dose of Lasix given yesterday and sats are 90% seated currently #. shaking chills: pt describes episode 2 nights ago/ no recurrence #. htn: BP appears controlled #. PVD: on statin #. CAD: on med mgmt/ given advanced age, we have not done any recent stress testing Plan: OK to d/c from cardiology perspective when placement arranged Will have have him follow up in clinic in 2-4 weeks 06/06/17 09:26 Subjective: Feels "about the same." No dyspnea. No further episodes of shaking chills. Reviewed/Discussed With: hospitalist Objective: Vital Signs (8 Hrs) Temp Pulse Resp BP Pulse Ox 06/06/17 07:23 98.5 F 78 18 126/101 H 96 06/06/17 04:00 98.2 F 81 16 107/70 98 Intake/Output (24 Hrs) 06/05/17 06/06/17 06/07/17 05:59 05:59 05:59 Intake Total 780 1320 Output Total 1620 925 Balance -840 395 Intake: Oral (ml) 780 1320 Output: Urine (ml) 1620 925 Incontinence 0 Toilet 100 Urinal 1520 925 Other: Intake Quantity Yes Sufficient Number of Voids Incontinence 1 Toilet 1 Urinal 2 1 Post Void Residual Scan Volume (ml) Incontinence 19 Result Diagrams: 06/04/17 04:03 06/05/17 03:56 Telemetry: AF CVR - Physical Exam Constitutional: no apparent distress Ears, Nose, Mouth, Throat: moist mucous membranes Cardiovascular: irregularly irregular Respiratory: other (clear in bases) Gastrointestinal: normoactive bowel sounds Neurologic: AAOx3 Psychiatric: cooperative, interactive ICD10 Worksheet Patient Problems: Problems Problem Status Onset Fall Acute Fracture of hand Acute Shoulder pain, right Acute Constipation Acute Humeral surgical neck fracture Acute Skin tear Acute Syncope Acute Hematoma Acute
--- NOTE | 2017-06-06 11:31 | HOSPPROG ---
Hospitalist Progress Note Assessment/Plan: Patient is a 86-year-old male with a history of coronary artery disease status post coronary artery bypass grafting, hyperlipidemia, hypothyroidism, atrial fibrillation on chronic anticoagulation, who presented the emergency room after having a syncopal episode early in the morning. Reviewed his care Janie Becker. * syncope Patient has a history of orthostatic hypotension Coreg dc/ suspect hypotension was likely the etiology carotid ultrasound shows moderate stenosis pacer interrogation shows no occult arrhythmias *hypoxia Resolved with 1 dose of IV Lasix Oxygen level stable on room air *renal insufficiency due to hypoperfusion from low bp improving *gait instability therapies are recommending SNF * hypotension Resolved Will not resume Coreg or Proscar *Hypothyroidism TSH is elevated at 27.4/recheck in 6 weeks increased Synthroid dose from 125 mcg to 137mcg T3 is 0.474 * left humerus fracture at the surgical neck appreciate Dr Blank/ nonsurgical had some bleeding in bandages per nursing staff, will hold Coumadin one more day * skin tears wound care * leukocytosis resolved *anemia will follow/ has some macrocytosis *Pyuria and hematuria not symptomatic/says he has had years of blood in his urine * atrial fibrillation/persistent rate controlled without coreg Coumadin on hold/ INR is 2.3 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 * BPH holding Proscar for now (decreases bp) Voiding without difficulty * depression stable * hyperlipidemia statin resumed *Plan: [facility] Subjective: Tyrone is feeling well Objective: Vital Signs Temp Pulse Resp BP Pulse Ox 36.9 C 78 18 126/101 H 96 06/06/17 07:23 06/06/17 07:23 06/06/17 07:23 06/06/17 07:23 06/06/17 07:23 Laboratory Results 06/04/17 04:03 06/05/17 03:56 06/05/17 06/06/17 06/07/17 05:59 05:59 05:59 Intake Total 780 1320 Output Total 1620 925 225 Balance -840 395 -225 PT 24.0 SEC (12.0-15.0) H 06/06/17 03:51 INR 2.13 (0.83-1.16) H 06/06/17 03:51 - Physical Exam Constitutional: no apparent distress, appears nourished Eyes: PERRL Ears, Nose, Mouth, Throat: hearing normal Cardiovascular: irregularly irregular Respiratory: no respiratory distress Gastrointestinal: normoactive bowel sounds, soft, non-tender abdomen Skin: warm Musculoskeletal: generalized weakness Neurologic: AAOx3 Psychiatric: interacting appropriately ICD10 Worksheet Patient Problems: Problems Problem Status Onset Hematoma Acute Humeral surgical neck fracture Acute Skin tear Acute Syncope Acute Constipation Acute Fall Acute Fracture of hand Acute Shoulder pain, right Acute
[2017-06-06 11:39] VITALS: BP 103/73; PULSE 83; RESP 16; TEMP 97.8; O2SAT 88
--- NOTE | 2017-06-06 11:41 | PDIAF ---
- Diagnosis Diagnosis: syncope, left humerus fx, afib Code Status: Do Not Resuscitate - Medication Management Discharge Medications: Medications to Continue on Transfer Cholecalciferol Vit D3 [Vitamin D3 (*)] 1,000 units PO DAILY 06/02/17 [Last Taken 06/01/17] SIMVASTATIN 10 mg PO DAILY@1800 06/02/17 [Last Taken 06/01/17] Sertraline HCl [Zoloft 25mg (*)] 25 mg PO DAILY 06/02/17 [Last Taken 06/01/17] Warfarin Sodium [Coumadin 1MG (*)] 1.5 mg PO MOFR@1700 06/02/17 [Last Taken ] Warfarin Sodium [Coumadin 1MG (*)] 3 mg PO SUTUWETHSA@1700 06/02/17 [Last Taken 06/01/17] Acetaminophen [Tylenol ES 500 mg (*)] 1,000 mg PO TID tab 06/06/17 [Last Taken Unknown] Hydrocodone/APAP 5/325 [[place] 5/325 (*)] 1 tab PO Q4HRS PRN tab 06/06/17 [Last Taken Unknown] Levothyroxine [Synthroid 137 mcg (*)] 137 mcg PO DAILY06 #30 tab 06/06/17 [Last Taken Unknown] Discharge Medications: Refer to the Discharge Home Medication list for PRN reason. PICC Care - Routine: N/A - Orders Services needed: Physical Therapy, Occupational Therapy Diet Recommendation: no restrictions on diet Diet Texture: Regular Texture Diet Equipment: sling to left arm, should use a forearm rolling walker Additional: Synthroid dose increased to 137 mcg during hospital stay/ needs a TSH rechecked in 6 weeks. Coreg, Aspirin and proscar have all been stopped due to hypotension. Do not resume Coreg or aspirin. If he has any urinary difficulties, can resume proscar. - Labs/Radiology BMP Date: 06/10/17 CBC Date: 06/10/17 PT/INR Date: 06/08/17 (every 3 days until stable/ had been elevated on admission ) - Follow Up Care Current Providers and Referrals: Michelle Villalobos PA [Primary Care Provider] - As per Instructions Janie Becker PA [Physician Asphalt Heater Tender] - See Blank MD [Medical Doctor] - follow up in 2 weeks
--- NOTE | 2017-06-06 13:59 | ASMTCMCOM ---
CM Note CM Note Notes: Patient ok to dc. To dcd to [facility] this PM. Transfer summary, meds, notes and medication list all sent via [employer]. DC planning spoke with his son and [facility], to transport about 2:30pm via [place] van. CM available should any needs arise. Date Signed: 06/06/2017 01:59 PM Electronically Signed By:Parris Santoyo RN
--- NOTE | 2017-06-06 14:44 | GDS ---
[f rep st] DISCHARGE SUMMARY DISCHARGE DIAGNOSES: 1. Syncope with a history of orthostatic hypotension. 2. Hypoxemia. 3. Renal insufficiency. 4. Gait instability. 5. Hypertension. 6. Hypothyroidism. 7. Left humerus fracture at the surgical neck. 8. Skin tears. 9. Leukocytosis. 10. Anemia. 11. Pyuria and hematuria. 12. Persistent atrial fibrillation. 13. BPH. 14. Depression. 15. Hyperlipidemia. CONSULTATIONS: 1. Dr. See Blank. 2. Dr. Van Collado. HISTORY: Briefly, the patient is an 86-year-old gentleman with past medical history of coronary artery disease, status post CABG, hyperlipidemia and hypothyroidism, who presented to the Emergency Department after a syncopal episode at home early in the morning. He got up around 2:00 a.m. to go to the bathroom and had a few seconds where he blacked out. He does not recall the total event. He fell, landing on his left arm area. It was noted that he had a left humerus fracture at the surgical neck. Dr. Blank with Orthopedics evaluated him. It does not require surgery. He will follow up with Dr. Blank in the outpatient setting. During his stay, he had significant hypotension. His Coreg, Proscar have been discontinued. They will not be resumed on discharge. Further followup with Cardiology in the outpatient setting. HOSPITAL COURSE: 1. Syncopal event. He had a carotid Doppler study performed that showed no worsening stenosis. His pacemaker was interrogated. He has no occult arrhythmias. I suspect this is mainly due to hypotension. He has a history of orthostasis. He has not had any syncopal events with the discontinuing of Coreg. 2. Hypoxemia. Suspect he got a bit fluid overloaded after receiving a few intravenous doses of normal saline. This resolved with Lasix. 3. Renal insufficiency, improved. 4. Gait instability. Therapies are recommending [facility] [facility]. He will go to [facility] [place] at discharge. 5. Hypotension, resolved. 6. Hypothyroidism. His TSH was elevated at 27.4. His dose of Synthroid was increased from 125 mcg to 137 mcg. He will need a TSH rechecked in 6 weeks. 7. Left humerus fracture at the surgical neck, nonsurgical. Further follow up with Dr. Blank and get repeat x-rays. 8. Skin tears. Wound Care. 9. Leukocytosis, resolved. 10. Anemia. Overall stable. He has some macrocytosis. 11. Pyuria and hematuria. He is not symptomatic of a urinary tract infection. He said he has had blood in his urine for years. Further follow up with his PCP. 12. Persistent atrial fibrillation. It is rate controlled without Coreg. Coumadin was resumed today. 13. Proscar. He has been able to void without difficulty. I will hold Proscar because it does affect blood pressure in 18% of the population. 14. Depression, stable. 15. Hyperlipidemia, on statin therapy. CONDITION AT DISCHARGE: Stable. Blood pressure is 126/101, O2 sats on room air 96%, respiratory rate is 18, pulse is 78, temperature is 36.9 Celsius. MEDICATIONS AT DISCHARGE: Please see the EMR. DISCHARGE INSTRUCTIONS: 1. To get a TSH checked in 6 weeks. 2. To monitor his INR closely at the rehabilitation facility. It was quite elevated on admission. 3. His Proscar, Coreg, and aspirin have all been discontinued. Greater than 30 minutes spent discharging and coordinating his care. /[id number]/MODL MTDD
--- NOTE | 2017-06-06 15:49 | ASDISCHSUM ---
Discharge Information Plan Status:SNF Medically Cleared to Leave:06/06/2017 Discharge Date:06/06/2017 02:57 PM CM D/C Disposition:[facility]way Facility ADT D/C Disposition:Halfway Facility Projected Discharge Date:06/05/2017 11:00 AM Transportation at D/C:Wheelchair Van Discharge Delay Reason: Follow-Up Date:06/05/2017 11:00 AM Discharge Slot: Final Diagnosis: Placement Information Referral Type:*Chcf/SNF Referral ID:[id number] Provider Name:[facility] Address 1:[address] Address 2: City:[place] Selection Factors: State:[place] Patient Contact Information Contact Name:LEONARDO Relationship:Son Address: Work Phone: City: [facility] Phone: [facility] Code: Email: Financial Information Financial Class:Medicare Advantage Plans Primary Plan Desc:[employer] Primary Plan Number:[id number] Secondary Plan Desc: Secondary Plan Number: Assessment Information [facility] CM Progress Note CM Note CM Note Notes: 06/03/2017 Case Management Note Met w/pt and son Kyle who is [facility]. Pt lives at [facility] near [facility]. is wheelchair bound and receives therapy from both [facility] and [facility]. If pt needs home health care, first choice is to [facility] services [facility]. Pt is able to drive, receives housekeeping services and meals through [facility]. Son is actively involved in cares. Kyle reports that [facility] is able to add additional services as needed and that [facility] is able to care for residents who are bed bound and require high levels of care. PT recommends SNF rehab. Discussed w/pt and son. Sent referrals to [facility] and [facility] at pt request. Both are in network for [place] per son who researched on [employer] website. Case Management d/c poc: SNF when accepted. Case Management to follow. Date Signed: 06/03/2017 12:26 PM Electronically Signed By:Juju Alvarez RN [facility] Progress Note CM Note CM Note Notes: 06/05/2017 Case Management Note: Met w/patient and son. Son plans to tour [facility] and [facility] tomorrow and chose facility. Tim from [facility] met w/patient. Spoke w/Hillary on the phone from [employer]. Pt indicates d/c will happen on Monday. Case Management to follow. 06/03/2017 Case Management Note Met w/pt and son Kyle who is [facility]. Pt lives at [facility] near [facility] and [facility]. is wheelchair bound and receives therapy from both [facility] and [facility]. If pt needs home health care, first choice is to increase services through [facility]. Pt is able to drive, receives housekeeping services and meals through [facility]. Son is actively involved in cares. Kyle reports that [facility] is able to add additional services as needed and that [facility] is able to care for residents who are bed bound and require high levels of care. PT recommends SNF rehab. Discussed w/pt and son. Sent referrals to [facility] and [facility] at pt request. Both are in network for [employer] per son who researched on [employer] website. Case Management d/c poc: SNF when accepted. Case Management to follow. Date Signed: 06/05/2017 04:43 PM Electronically Signed By:Juju Alvarez RN [facility] Progress Note CM Note CM Note Notes: Patient ok to dc. To dcd to [facility] this PM. Transfer summary, meds, notes and medication list all sent via [employer]. DC planning spoke with his son and he will meet him at [facility], to transport about 2:30pm via wc van. CM available should any needs arise. Date Signed: 06/06/2017 01:59 PM Electronically Signed By:Parris Santoyo RN Intervention Information Intervention Type:*Incorrect Registration Date of Service:06/02/2017 09:54 AM Patient Type:Observation Staff Member:LISA Jamison, Serene Hours: Discipline: Severity: Comment: Intervention Type:*LADD-Signed Date of Service:06/02/2017 11:19 AM Patient Type:Observation Staff Member:Lisa Billy Hours: Discipline: Severity: Comment: Intervention Type:*IM-Signed Date of Service:06/06/2017 01:55 PM Patient Type:Inpatient Staff Member:Lisa Billy Hours: Discipline: Severity: Comment:
== END 2017-06-06 14:57 | DRG 312 ==
LOC: EDUNIT# → INTOOBSV 03:43 → F2W 08:57 → OBSVTOIN 06-03 12:41
PROVIDERS: ADMIT Family Medicine; ATTEND Family Medicine
DX: I95.2 Hypotension due to drugs (principal); S42.202A Unspecified fracture of upper end of left humerus, initial encounter for closed fracture; W19.XXXA Unspecified fall, initial encounter; Y92.019 Unspecified place in single-family (private) house as the place of occurrence of the external cause; R09.02 Hypoxemia; I25.10 Atherosclerotic heart disease of native coronary artery without angina pectoris; I48.1 Persistent atrial fibrillation; E03.9 Hypothyroidism, unspecified; E78.5 Hyperlipidemia, unspecified; N40.1 Benign prostatic hyperplasia with lower urinary tract symptoms; R31.9 Hematuria, unspecified; I49.5 Sick sinus syndrome; Z23 Encounter for immunization; Z79.01 Long term (current) use of anticoagulants; Z95.0 Presence of cardiac pacemaker; Z95.1 Presence of aortocoronary bypass graft
CPT/HCPCS: 84480-90; 96374; 97116-GP; 97161-GP; 97166-GO; 97530-GP; A4565; G0378; G8978-GP-CM; G8979-GP-CJ; G8987-GO-CK; G8988-GO-CJ; J3010